=== PATIENT | female | born 1975 | race Caucasian/White ===

== ENCOUNTER → 2016-12-21 | Day surgery (SDC) | payer OTHER ==
[~2016-12-21] VITALS: Ht 162.6 cm; Wt 59.0 kg
[2016-12-21] VITALS (13 sets, daily range): BP systolic 98–115; BP diastolic 58–72
[~2016-12-21] MED LIST: D5 1/2NS 1,000 ML IV SCH; HYDROmorphone 1mg/ml Carpuject SUBQ PRN; Hydromorphone 0.5mg/0.5ml inj IVP PRN; Ketorolac 30mg Inj IV ONE; MULTIVITAMINS1 EAC2 ORAL; NS Irrig 1000ml IRRIG ONE; Neostigmine 1mg/ml 10ml Inj ONE; Norco 5mg/325mg tab ORAL PRN; ProvayBlue 5mg/ml 10ml amp INJ ONE; Ropivacaine 5mg/ml Vial 20ml INJ ONE; Tylenol #3 tab (300mg/30mg) ORAL PRN; cefOXitin Sod 2 GM in D5W 110 ML IVPB ONE
--- NOTE | 2016-12-21 00:58 | Pre-op HX & Phy Repo 2 SIG ---
DATE OF ADMISSION: 12/21/2016 HISTORY OF PRESENT ILLNESS: This is a 41-year-old female 2 para 1, ecstatic 1 was diagnosed with the cervical in June 2016 at [facility] emergency room. At this time, the patient presented with vaginal bleeding and abdominal pain and cramps. After complete workup, cervical was diagnosed and the patient was treated with methotrexate. Since then, the patient was followed in my office with the ultrasound, pelvic exam and beta-HCG level. Level of beta-HCG was going down and in 12/07/2016, it was zero. Her Pap smear also was performed in August 2016 was +1. Her condition and she was discharged from our observation. However, the patient expressed desire to get and we discussed hysteroscopy and in detail the patient. On ultrasound the patient was performed in 11/05/2016 showed that was diagnosed with the subserosal fibroids, 4 cm in diameter and stable and both ovaries appeared to be normal. There are no abnormal structures. PAST MEDICAL HISTORY: Her previous medical history includes hospitalization x1 for delivery. Medical problems denies. No heart disease. No lung disease. No liver disease. SOCIAL HISTORY: Tobacco, does not smoke. Alcohol, does not drink. 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 REVIEW OF SYSTEMS: Noncontributory. PHYSICAL EXAMINATION: GENERAL: The patient is well developed and well nourished white female, in no acute distress. VITAL SIGNS: Stable. SKIN: No lesion. HEENT: Head, normocephalic. Eyes, pupils are reactive to light and accommodation. Ears, tympanic membranes intact. Mouth, good hygiene. NECK: Supple. CHEST: Clear to percussion and auscultation. HEART: Heart rate is regular. S1 and S2. BREASTS: No masses. Nipples without discharge. ABDOMEN: Soft. Nontender. Bowel sounds present. Costovertebral angle is nontender. EXTREMITIES: No edema. No erythema. PELVIC: Revealed Bartholin urethral, [place] glands within normal limits. Vulva and vagina no lesions. Cervix closed. Uterus like 7 or 8 weeks size. Adnexa, no masses. LABORATORY AND DIAGNOSTIC DATA: Her blood work from , WBC 6.1, hemoglobin 12.0, and hematocrit 38.6. Her PT 10.6. Her INR 0.938. PTT 31. test negative. IMPRESSION: 1. Status post cervical pregnancies. 2. Uterine fibroids. 3. Low abdominal pain. 4. Dyspareunia. 5. Dysmenorrhea. PLAN: 1. Hysteroscopy. 2. . Jenny Gaviria M.D. DR: ELIAN JOB#: [id number] CC:
--- NOTE | 2016-12-21 08:45 | Anethesia Preoperative Eval ---
Anesthesia Pre-op PMH/ROS General Date of Evaluation: Dec 21, 2016 Time of Evaluation: 07:15 Anesthesiologist: Igor ASA Score: ASA 1 Mallampati Score Class I : Soft palate, uvula, fauces, pillars visible Class II: Soft palate, uvula, fauces visible Class III: Soft palate, base of uvula visible Class IV: Only hard plate visible Mallampati Classification: Class II Surgeon: Khadra Diagnosis: Uterine Fibroids Surgical Procedure: LaPAROSCOPY Uterine fibroids Anesthesia History: none Family History: no anesthesia problems Allergies: Coded Allergies: Dairy (Verified Allergy, Intermediate, 12/20/16) VOMITING,SWELLING OF HANDS AND FEET Medications: see eMAR Past Medical History Cardiovascular: Denies: CAD, HTN, SC, arrhythmia, other, valve dz Pulmonary: Denies: COPD, SYLVAIN, asthma, other Gastrointestinal/Genitourinary: Denies: CRI, ESRD, GERD, other Neurologic/Psychiatric: Denies: CVA, TIA, dementia, depression/anxiety, other Endocrine: Denies: DM, hypothyroidism, other, steroids HEENT: Denies: [place] (L), [place] (R), cataract (L), cataract (R), glaucoma, other Hematology/Immune: Denies: DVT, anemia, bleeding disorder, other Musculoskeletal/Integumentary: Denies: DDD, DJD, OA, RA, edema, other Anesthesia Pre-op Phys. Exam Physician Exam Last Vital Signs Date Time Temp Pulse Resp B/P Pulse Ox O2 Delivery O2 Flow Rate FiO2 12/21/16 06:41 97.7 74 18 103/68 97 Room Air Constitutional: NAD Neurologic: CN 2-12 intact Cardiovascular: RRR Respiratory: CTA Gastrointestinal: S/NT/ND Airway Exam Mallampati Score: Class II Anesthesia Pre-op A/P Labs Urine Test Test 12/21/16 05:50 Urine HCG, Qualitative Negative GALILEO MCELROY M.D. Dec 21, 2016 08:45
--- NOTE | 2016-12-21 09:19 | Immediate Post-Op Evaluation ---
Immediate Post-Op Evalulation Immediate Post-Op Evalulation Procedure: Laparoscopy Date of Evaluation: Dec 21, 2016 Time of Evaluation: 09:30 IV Fluids: 300 Blood Products: 0 Estimated Blood Loss: 0 Blood Pressure Systolic: 120 Blood Pressure Diastolic: 80 Pulse Rate: 70 Respiratory Rate: 20 O2 Sat by Pulse Oximetry: 99 Temperature (Fahrenheit): 98 Pain Score (1-10): 2 Nausea: No Vomiting: No Complications na Patient Status: awake Hydration Status: adequate Drug: Ancef1 G Given Within 1 Hr of Incision: Yes Time Given: 08:00 GALILEO MCELROY M.D. Dec 21, 2016 09:19
--- NOTE | 2016-12-21 09:20 | 48 Hour Post Anesthesia Eval ---
Post Anesthesia Evaluation Procedure: Laparoscopy Date of Evaluation: Dec 21, 2016 Time of Evaluation: 10:30 Blood Pressure Systolic: 120 0: 80 Pulse Rate: 70 Respiratory Rate: 20 Temperature (Fahrenheit): 98 O2 Sat by Pulse Oximetry: 98 Airway: patent Nausea: No Vomiting: No Pain Intensity: 2 Hydration Status: adequate Cardiopulmonary Status: stable Mental Status/LOC: patient returned to baseline Follow-up Care/Observations: na Post-Anesthesia Complications: na Follow-up care needed: N/A GALILEO MCELROY M.D. Dec 21, 2016 09:20
--- NOTE | 2016-12-21 09:41 | Pre-Procedure Note/Attestation ---
Pre-Procedure Note/Attestation Complete Prior to Procedure Planned Procedure: bilateral Procedure Narrative: Video Hysteroscopy, Video Laser Pelviscopy, lysis of pelvic and bowel adhesions , chromotubation Indications for Procedure Pre-Operative Diagnosis: Pelvic Pain, history of ectopic Attestation I attest that I discussed the nature of the procedure; its benefits; risks and complications; and alternatives (and the risks and benefits of such alternatives ), prior to the procedure, with the patient (or the patient's legal customer sales representative). I attest that, if there was a reasonable possibility of needing a blood transfusion, the patient (or the patient's legal customer sales representative) was given the [place] Department of Health Services standardized written summary, pursuant to the [place] Blood Safety Act ([place] Health and Safety Code # 1645, as amended). I attest that I re-evaluated the patient just prior to the surgery and that there has been no change in the patient's H&P, except as documented below:NONE JENNIFER SANZ Dec 21, 2016 09:41
--- NOTE | 2016-12-21 09:46 | Brief Operative Note ---
Immediate Post Operative Note Operative Note Pre-op Diagnosis: Pelvic Pain, history of ectopic Procedure: D&C, Hysteroscopy, Video Laser Pelviscopy, enterolysis, lysis of pelvic adhesions, chromotubation Post-op Diagnosis: Pelvic adhesions, posterior uterine fibroid Post-op Diagnosis: same as pre-op Findings: consistent w/pre-op dx studies Surgeon: Jennifer Sanz MD Restrooms Or Lounges Maid: Mandy Maxwell MD Anesthesiologist: Dirk Costa MD Anesthesia: general Specimen: yes - E[facility], [facility] Complications: none Condition: stable Estimated Blood Loss: minimal Drains: none Implant(s) used?: No JENNIFER SANZ Dec 21, 2016 09:46
--- NOTE | 2016-12-27 17:08 | Operative Note - Dictated ---
PREOPERATIVE DIAGNOSES: 1. Persistent pelvic pain. 2. History of ectopic . POSTOPERATIVE DIAGNOSES: 1. Extensive pelvic adhesions. 2. Posterior uterine fibroid. 3. Intestinal adhesions. PROCEDURE PERFORMED: 1. Dilatation and curettage. 2. Video hysteroscopy. 3. Video laser pelviscopy with enterolysis. 4. Video laser pelviscopy with lysis of pelvic adhesions and chromotubation. SURGEON: Marcelo Gaviria M.D. RECORDS AND INFORMATION MANAGER: Mandy Maxwell M.D. ANESTHESIOLOGIST: Dirk Costa M.D. ANESTHESIA: General. PROCEDURE IN DETAIL: After all the appropriate consents were signed, the patient was brought to the operating room and placed on the table in supine position. The patient was then placed in the dorsal lithotomy position and the abdomen, perineum, and vagina were prepped and draped in the usual fashion for the procedure. Alexander catheter was placed in the bladder. At this time, the procedure began with the vaginal approach where the cervix was dilated, video hysteroscope was introduced, and the uterine cavity was visualized. There were no submucosal fibroids. There were no indentations in the uterine cavity posteriorly where a fibroid was identified previously on ultrasound. The tubal ostia could be well visualized. At this time, uterine curettage was performed after endocervical curettage was performed. Both specimens were submitted to pathology for evaluation. Uterine manipulator was placed and the procedure continued to its abdominal portion. An umbilical incision was made. Veress needle was advanced and the abdomen was insufflated with 15 mmHg. The 11 mm trocar was placed atraumatically and the laparoscope was advanced in the pelvis. There were immediately extensive adhesions interfering with visualization. There was omentum and bowel adhesed to the anterior abdominal wall extending from the umbilicus and lower towards the left side of the pelvis. The right side of the pelvis was better visualized beginning. An additional trocar was placed in midline and video laparoscopy continued with the CO2 laser removing the anterior adhesions from the bowel and the omentum. Once this was completed, additional adhesions in the left pelvis were removed. Enterolysis was necessary to remove some of the loops of bowel away from the uterus. Once this was completed, the entire uterus could be visualized, it was elevated, and there was a significant subserosal fibroid posteriorly from the uterus. Both tubes were now visualized and were apparently within normal limits. Chromotubation was now performed and dye was seen spilling well bilaterally from both tubes. At this time, the upper abdomen was examined and was found to be within normal limits. There were no adhesions from the liver edge to the to the anterior abdominal wall. At this time, the patient's pelvis was once again evaluated. All the operative sites were evaluated and found to be hemostatic. Trocars were removed under direct visualization with the laparoscope. The laparoscope was removed last from the umbilical incision. The incisions were closed using #0 Vicryl suture at the fascia layer and 4-0 Vicryl and Steri-Strips were used at the skin layer. The patient was now placed in the supine position and awakened from general anesthesia in excellent condition. She tolerated the procedure very well. Marcelo Gaviria M.D. DR: CECILLE JOB#: [id number] CC:
== END | disposition home or self-care (01) ==
LOC: SUR 05:37
DX: D25.9 Leiomyoma of uterus, unspecified (principal); N94.10 Unspecified dyspareunia; N94.6 Dysmenorrhea, unspecified; N73.6 Female pelvic peritoneal adhesions (postinfective); Z91.011 Allergy to milk products
CPT/HCPCS: 81025; 94003; 94150; J2710

== ENCOUNTER 2017-09-04 01:17 | Emergency (ER) | payer OTHER ==
[~2017-09-04] VITALS: Ht 162.6 cm; Wt 63.5 kg
[~2017-09-04 01:17] MED LIST changes: -D5 1/2NS 1,000 ML IV SCH; -HYDROmorphone 1mg/ml Carpuject SUBQ PRN; -Hydromorphone 0.5mg/0.5ml inj IVP PRN; -Ketorolac 30mg Inj IV ONE; -NS Irrig 1000ml IRRIG ONE; -Neostigmine 1mg/ml 10ml Inj ONE; -Norco 5mg/325mg tab ORAL PRN; -ProvayBlue 5mg/ml 10ml amp INJ ONE; -Ropivacaine 5mg/ml Vial 20ml INJ ONE; -Tylenol #3 tab (300mg/30mg) ORAL PRN; -cefOXitin Sod 2 GM in D5W 110 ML IVPB ONE
[2017-09-04 01:30] VITALS: BP 120/74
[2017-09-04] MEDS ORDERED: AMOXICILLIN500 MG ORAL (01:48)
[2017-09-04] MEDS ORDERED: HYDROCODON-ACE1 EA15 ORAL (01:48)
--- NOTE | 2017-09-04 01:48 | Emergency Room Report ---
History of Present Illness General Chief Complaint: Toothache Source: Patient Present Illness HPI Is a 42-year-old female with no significant past medical history. She presents with dental pain. Onset tonight. Last week she had dental work done. She had 2 root canal and temporary filling onto her the teeth. She had a mouth guard. She didn't off as he went to the bathroom. She actually bit down and felt a sharp pain. Denies any fever or chills. Pain is 10 out of 10. Radiating to her neck and down her neck. No nausea no vomiting. Nothing any pain medication. Finished antibiotics last week. Allergies: Coded Allergies: Dairy (Verified Allergy, Intermediate, 12/20/16) VOMITING,SWELLING OF HANDS AND FEET Patient History Past Medical History: see triage record, old chart reviewed Past Surgical History: none Pertinent Family History: none Social History: Denies: smoking Last Menstrual Period: 08/11/17 Now: No Immunizations: other Reviewed Nursing Documentation: PMH: Agreed, PSxH: Agreed Nursing Documentation-PMH Hx Cardiac Problems: No - ectopic January 2017 Hx Cancer: No Hx Gastrointestinal Problems: No Hx Neurological Problems: No Review of Systems Eye: Denies: eye pain, blurred vision ENT: Denies: ear pain, nose congestion, throat swelling Respiratory: Denies: cough, shortness of breath Cardiovascular: Denies: chest pain, palpitations Gastrointestinal: Denies: abdominal pain, diarrhea, nausea, vomiting Musculoskeletal: Denies: back pain, joint pain Skin: Denies: rash Neurological: Denies: headache, numbness Endocrine: Denies: increased thirst, increased urine Hematologic/Lymphatic: Denies: easy bruising All Other Systems: negative except mentioned in HPI Physical Exam Vital Signs Date Time Temp Pulse Resp B/P (MAP) Pulse Ox O2 Delivery O2 Flow Rate FiO2 09/04/17 01:18 98.1 88 20 116/72 96 Room Air vitals normal Sp02 EP Interpretation: reviewed, normal General Appearance: well appearing, no apparent distress, alert Head: normocephalic, atraumatic Eyes: bilateral eye PERRL, bilateral eye EOMI ENT: hearing grossly normal, normal pharynx, other - Percussive tenderness to the left Lower molars Neck: full range of motion, supple, no meningismus Respiratory: chest non-tender, lungs clear, normal breath sounds Cardiovascular #1: regular rate, rhythm, no murmur Gastrointestinal: normal bowel sounds, non tender, no mass, no organomegaly, no bruit, non-distended Musculoskeletal: back normal, gait/station normal, normal range of motion Psychiatric: mood/affect normal Skin: warm/dry Procedures Additional Procedure Procedure Narrative Procedure: Dental block Medication: Dental pain Description: I injected 2 mL of 1% lidocaine with epinephrine into the left inferior alveolar ridge. Patient good pain relief. Tolerated procedure without any problem. No complication. Medical Decision Making Diagnostic Impression: Primary Impression: Toothache ER Course Patient with dental pain. Differential include fracture, infection, pulpitis to name a few. We'll discharge home. Last Vital Signs Date Time Temp Pulse Resp B/P (MAP) Pulse Ox O2 Delivery O2 Flow Rate FiO2 09/04/17 01:18 98.1 88 20 116/72 96 Room Air Status: improved Disposition: HOME, SELF-CARE Condition: Stable Scripts Hydrocodone/Acetaminophen 5-325* (HYDROCODONE/ACETAMINOPHEN 5-325*) 1 Each Tablet 1 TAB ORAL Q6H Y for For Pain, #20 TAB 0 Refills Prov: MARINA TAMEZ M.D. 09/04/17 Amoxicillin* (AMOXIL*) 500 Mg Capsule 500 MG ORAL THREE TIMES A DAY, #21 CAP Prov: MARINA TAMEZ M.D. 09/04/17 Patient Instructions: Dental Pain Additional Instructions: Followup with dentist HUGH. Return it worse. MARINA TAMEZ M.D. Sep 04, 2017 01:48
[2017-09-04 02:00] VITALS: BP 120/74
== END 2017-09-04 02:00 | disposition home or self-care (01) ==
LOC: EMR 01:43
DX: K08.89 Other specified disorders of teeth and supporting structures (principal)
CPT/HCPCS: 99283

== ENCOUNTER 2018-01-28 03:59 | Emergency (ER) | payer OTHER ==
[~2018-01-28] VITALS: Ht 162.6 cm; Wt 61.2 kg
[~2018-01-28 03:59] MED LIST changes: +AMOXICILLIN500 MG ORAL; +HYDROCODON-ACE1 EA15 ORAL
[2018-01-28] MEDS ORDERED: AMOXICILLIN500 MG ORAL (04:36)
[2018-01-28] MEDS ORDERED: HYDROCODON-ACE1 EA15 ORAL (04:36)
[2018-01-28] MEDS ORDERED: IBUPROFEN600 MG ORAL (04:36)
--- NOTE | 2018-01-28 04:37 | Emergency Room Report ---
History of Present Illness General Chief Complaint: Toothache Source: Patient Present Illness HPI Is a 42-year-old female presents with chief complaint of dental pain. Is in with ongoing for the last few days. He said her dentist tolerate she to see a telephone order clerk room service because she already had a root canal done and she will need a CT scan and maybe surgery. She presents with chief complaint of left lower jaw pain and dental pain. Pain is 10 out of 10. Throbbing in nature. Worse with eating and drinking. No fever chills. No nausea no vomiting. Has not taken anything for it. Allergies: Coded Allergies: Dairy (Verified Allergy, Intermediate, 12/20/16) VOMITING,SWELLING OF HANDS AND FEET Patient History Past Medical History: see triage record, old chart reviewed Past Surgical History: other Pertinent Family History: none Social History: Denies: smoking Last Menstrual Period: january 11 Now: No Immunizations: other Reviewed Nursing Documentation: PMH: Agreed; PSxH: Agreed Nursing Documentation-PMH Hx Cardiac Problems: No - ectopic January 2017 Hx Cancer: No Hx Gastrointestinal Problems: No Hx Neurological Problems: No Review of Systems Eye: Denies: eye pain, blurred vision ENT: Denies: ear pain, nose congestion, throat swelling Respiratory: Denies: cough, shortness of breath Cardiovascular: Denies: chest pain, palpitations Gastrointestinal: Denies: abdominal pain, diarrhea, nausea, vomiting Musculoskeletal: Denies: back pain, joint pain Skin: Denies: rash Neurological: Denies: headache, numbness Endocrine: Denies: increased thirst, increased urine Hematologic/Lymphatic: Denies: easy bruising All Other Systems: negative except mentioned in HPI Physical Exam Vital Signs Date Time Temp Pulse Resp B/P (MAP) Pulse Ox O2 Delivery O2 Flow Rate FiO2 01/28/18 04:01 98.2 88 18 117/69 98 Room Air 98.2 Sp02 EP Interpretation: reviewed, normal General Appearance: well appearing, no apparent distress, alert Head: normocephalic, atraumatic Eyes: bilateral eye PERRL, bilateral eye EOMI ENT: hearing grossly normal, normal pharynx, other - Percussive tenderness to the second left lower molar. No abscess. Neck: full range of motion, supple, no meningismus Respiratory: chest non-tender, lungs clear, normal breath sounds Cardiovascular #1: regular rate, rhythm, no murmur Gastrointestinal: normal bowel sounds, non tender, no mass, no organomegaly, no bruit, non-distended Musculoskeletal: back normal, gait/station normal, normal range of motion Psychiatric: mood/affect normal Skin: warm/dry Procedures Additional Procedure Procedure Narrative Procedure: Dental block Indication: Dental pain Description: I injected 2 mL of 1% lidocaine with epinephrine into the inferior alveolar ridge on the left side. Patient tolerable procedure without any problem. no complications. Medical Decision Making Diagnostic Impression: Primary Impression: Acute pulpitis Additional Impression: Toothache ER Course Patient presents with dental pain. May be a small abscess. No evidence of seen abscess second twice a day. We'll discharge home. Last Vital Signs Date Time Temp Pulse Resp B/P (MAP) Pulse Ox O2 Delivery O2 Flow Rate FiO2 01/28/18 04:01 98.2 88 18 117/69 98 Room Air 98.2 Status: improved Disposition: HOME, SELF-CARE Scripts Ibuprofen* (MOTRIN*) 600 Mg Tablet 600 MG ORAL THREE TIMES A DAY, #30 TAB 0 Refills Prov: MARINA TAMEZ M.D. 01/28/18 Hydrocodone/Acetaminophen 5-325* (HYDROCODONE/ACETAMINOPHEN 5-325*) 1 Each Tablet 1 TAB ORAL Q6H PRN for For Pain, #15 TAB 0 Refills Prov: MARINA TAMEZ M.D. 01/28/18 Amoxicillin* (AMOXIL*) 500 Mg Capsule 500 MG ORAL THREE TIMES A DAY, #21 CAP Prov: MARINA TAMEZ M.D. 01/28/18 Referrals: NON PHYSICIAN (PCP) Patient Instructions: Dental Pain Additional Instructions: follow-up with your dentist in 2-3 days. return if symptoms worsen. MARINA TAMEZ M.D. January 28, 2018 04:37
[2018-01-28 04:42] VITALS: BP 117/69
[2018-01-28 04:44] VITALS: BP 117/69
== END 2018-01-28 04:45 | disposition home or self-care (01) ==
LOC: EMR 04:14
DX: K04.01 Reversible pulpitis (principal); K08.89 Other specified disorders of teeth and supporting structures
CPT/HCPCS: 99284

== ENCOUNTER 2018-04-03 02:10 | Emergency (ER) | payer OTHER ==
[~2018-04-03] VITALS: Ht 162.6 cm; Wt 61.2 kg
[~2018-04-03 02:10] MED LIST changes: +IBUPROFEN600 MG ORAL
[2018-04-03] MEDS ORDERED: Augmentin 875mg Tab ORAL ONE (02:45)
[2018-04-03] MEDS ORDERED: Tetanus/Diptheria/Pertussis Vaccine 0.5ml Syr IM ONE (02:45)
[2018-04-03] MEDS ORDERED: Neosporin Oint Ud Pkt TOP ONE (02:45)
[2018-04-03 03:05] VITALS: BP 121/77
[2018-04-03] MEDS ORDERED: AUGMENTIN 875-1 EAC1 ORAL (03:23)
[2018-04-03] MEDS ORDERED: ACETAMINOPHEN-1 EAC1 ORAL (03:23)
[2018-04-03] MEDS ORDERED: BACITRACIN15 GM TOPIC (03:23)
[2018-04-03 03:35] VITALS: BP 121/77
--- NOTE | 2018-04-03 05:04 | Emergency Room Report ---
History of Present Illness General Chief Complaint: Animal Bite Source: Patient Present Illness HPI 42-year-old female presents ED complaining injuries to both hands status post dog bite. States that another dog tried to attack her dog and while pulling her dog away she was bitten. States that the other dog did have a leash but she did not recognize the dog. Tetanus unknown. Pain is throbbing, 8 out of 10 , nonradiating. Denies any other injuries. No other aggravating relieving factors. Denies any other associated symptoms Allergies: Coded Allergies: Dairy (Verified Allergy, Intermediate, 12/20/16) VOMITING,SWELLING OF HANDS AND FEET Patient History Past Medical History: none Past Surgical History: none Pertinent Family History: none Social History: Denies: smoking, alcohol use, drug use Last Menstrual Period: March Now: No Immunizations: UTD Reviewed Nursing Documentation: PMH: Agreed; PSxH: Agreed Nursing Documentation-PMH Hx Cardiac Problems: No - ectopic January 2017 Hx Cancer: No Hx Gastrointestinal Problems: No Hx Neurological Problems: No Review of Systems All Other Systems: negative except mentioned in HPI Physical Exam Vital Signs Date Time Temp Pulse Resp B/P (MAP) Pulse Ox O2 Delivery O2 Flow Rate FiO2 04/03/18 02:27 98.5 86 18 123/77 96 Room Air 98.4 Sp02 EP Interpretation: reviewed, normal General Appearance: no apparent distress, alert, GCS 15, non-toxic Head: normocephalic Eyes: bilateral eye normal inspection, bilateral eye PERRL ENT: normal ENT inspection Neck: normal inspection Respiratory: normal inspection Cardiovascular #1: normal inspection Gastrointestinal: normal inspection Rectal: deferred Genitourinary: no CVA tenderness Musculoskeletal: swelling - R hand. bruising to R hand Neurologic: alert, oriented x3, responsive, motor strength/tone normal, sensory intact, speech normal Psychiatric: normal inspection Skin: other - avulsion nail L 5th finger Lymphatic: normal inspection Medical Decision Making Diagnostic Impression: Primary Impression: Dog bite Qualified Codes: W54.0XXA - Bitten by dog, initial encounter ER Course Hospital Course 42-year-old F presents ED c/o bilateral hand pain s/p dog bite Differential diagnoses include: abscess, cellulitis, ankle fracture, dislocation Clinical course Patient placed on stretcher. After initial history and physical, wound is irrigated. I ordered pain medications, tetanus, augmentin and Xray of R hand Patient states she does not want to wait for x-rays of her hand. States she will follow-up with her PMD. I explained that I cannot effectively rule out fracture given the bruising and swelling. Patient states she understands Wound irrigated on the left fifth finger nail bed. Bacitracin and dressing applied. Diagnosis -dog bite Stable and discharged to home with prescription Rx Tylenol, bacitracin, augmentin. Followup with PMD. Return to ED if symptoms recur or worsen Last Vital Signs Date Time Temp Pulse Resp B/P (MAP) Pulse Ox O2 Delivery O2 Flow Rate FiO2 04/03/18 03:01 98.5 04/03/18 02:27 86 18 123/77 96 Room Air Status: improved Disposition: HOME, SELF-CARE Condition: Stable Scripts Bacitracin (Bacitracin) 28.4 Gm Oint...g. 1 APPLIC TOPIC THREE TIMES A DAY, #28.4 GM Prov: Antonio Greenwood MD 04/03/18 Acetaminophen With Codeine (T#3) (TYLENOL #3 TAB*) Y Tab 1 TAB ORAL Q8H PRN for For Pain, #20 TAB Prov: Antonio Greenwood MD 04/03/18 Amoxicillin/Potassium Clav 875-125* (AUGMENTIN 875-125 TABLET*) 1 Each Tablet 1 TAB ORAL TWICE A DAY, #14 TAB Prov: Antonio Greenwood MD 04/03/18 Patient Instructions: Animal Bite, [id number] Antonio Greenwood MD Apr 03, 2018 05:04
== END 2018-04-03 03:35 | disposition home or self-care (01) ==
LOC: EMR 02:48
DX: S60.221A Contusion of right hand, initial encounter (principal); W54.0XXA Bitten by dog, initial encounter; Y93.89 Activity, other specified; Y92.89 Other specified places as the place of occurrence of the external cause; Z23 Encounter for immunization
CPT/HCPCS: 90471; 90715; 99284